=== PATIENT | female | born 1945 | race Caucasian/White ===

== ENCOUNTER 2016-05-25 05:49 | Day surgery (SDC) | payer MEDICARE ==
[2016-05-23 21:12] LABS: BASOPHILS 0.5 %; BASOPHILS ABSOLUTE 0.03 10/3/uL (0.0-0.16); EOSINOPHILS 0.5 %; EOSINOPHILS ABSOLUTE 0.03 10/3/uL (0.0-0.53); HEMATOCRIT 40.5 % (36.0-48.0); HEMOGLOBIN 13.3 g/dL (12.0-16.0); IMMATURE GRANULOCYTES 0.2 %; IMMATURE GRANULOCYTES ABSOLUTE 0.01 10/3/uL (0.0-0.11); LYMPHOCYTES 34.9 %; LYMPHOCYTES ABSOLUTE 2.07 10/3/uL (0.67-4.30); MEAN CORPUS HGB CONC 32.8 g/dL (32.0-36.0); MEAN CORPUSCULAR HEMOGLOB 29.6 pg (26.0-34.0); MEAN CORPUSCULAR VOLUME 90.2 fL (80-100); MEAN PLATELET VOLUME 10.7 fL (9.2-13.0); MONOCYTES 10.5 %; MONOCYTES ABSOLUTE 0.62 10/3/uL (0.21-1.20); NEUTROPHILS 53.4 %; NEUTROPHILS ABSOLUTE 3.17 10/3/uL (2.02-8.40); PLATELET COUNT 196 10/3/uL (150-400); RED CELL COUNT 4.49 10/6/uL (4.0-5.6); WHITE BLOOD CELLS 5.9 10/3/uL (4.5-10.5)
[2016-05-23 21:14] LABS: MANUAL DIFF NO %
[2016-05-23 21:22] LABS: BUN (BLOOD UREA NITROGEN) 13 MG/DL (6-23); CALCIUM, SERUM 9.1 MG/DL (8.5-10.4); CHLORIDE, SERUM 107 MMOL/L (96-112); CO2 (CARBON DIOXIDE) 28 MMOL/L (24-34); GFR AFRICAN AMERICAN 101 ML/MIN (>=60); GFR NON AFRICAN AMERICAN 87 ML/MIN (>=60); GLUCOSE, SERUM 91 MG/DL (60-99); POTASSIUM, SERUM 3.7 MMOL/L (3.5-5.3); SODIUM, SERUM 144 MMOL/L (135-148)
--- NOTE | ~2016-05-25 | OP ---
Record Of Operation [facility] [address] [place]. [address] NAME: CHENCHO QUINN : 43 STATUS : REG [facility] PAT#: [id number] AGE: 70 ADM/REG DATE : 05/25/16 MR#: [id number] REPORT SERV DATE: 05/25/16 DICTATED BY: ADRIEL ARIZA DATE: 05/25/16 REPORT STATUS : Draft TRANSCRIBED BY: ALISSA DATE: 05/25/16 DATE OF PROCEDURE: 05/25/2016 SERVICE: Otolaryngology. PREOPERATIVE DIAGNOSIS: Right tonsil mass. POSTOPERATIVE DIAGNOSIS: Right tonsil mass. PROCEDURES: 1. Otolaryngologic examination under anesthesia. 2. Right palatine tonsil biopsy. ANESTHESIA: General endotracheal anesthesia. ESTIMATED BLOOD LOSS: 3 mL. SPECIMEN: Right tonsil mass. FINDINGS: The patient had a very firm right tonsil compared to the left. I excised the firm portion of the tonsil, underneath was a large concretion intratonsillar tonsillith. I removed that as well. 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 The biopsy was sent for frozen diagnosis, and at the time of this dictation, the diagnosis had not been rendered from that. COMPLICATIONS: None. STATEMENT OF MEDICAL NECESSITY: This is a 70-year-old female with history of right-sided throat pain. A CT scan that had been obtained before the consultation with me showed an enhancing right-sided tonsil mass concerning for possible malignancy. In the clinic, given the location, I was unable to adequately biopsy or evaluate the lesion, so I recommended the above procedure. STATEMENT OF OPERATION: The patient was brought to the operating room in supine position, transferred to operating table. After all pressure points were padded and general endotracheal anesthesia was established, the patient was draped out for the procedure. Triple antibiotic ointment was applied to the lips and a McIvor mouth gag was inserted and locked for retraction of the tongue and oral cavity. Deep palpation of the oropharynx and base of tongue revealed soft left palatine tonsil and soft lingual tonsils. The right tonsil was very firm. There were no mucosal ulcerations. Given this finding, using a 15 blade, I carved out a piece of the very firm part of the tonsil. This was removed and placed in a cup to be sent for frozen analysis. I did take another deeper piece as well and also sent for frozen analysis. Under the deeper piece, was a large angulo-white concretion. This was removed from an intratonsillar crypt. Bleeding was minimal. I cauterized the area of excision with a suction Bovie. We passed the orogastric tube and suctioned out the stomach contents. The McIvor was removed. The patient was turned over to Anesthesia, where Record Of Operation [address] [address] NAME: CHENCHO QUINN : 43 STATUS : REG [facility] PAT#: [id number] AGE: 70 ADM/REG DATE : 05/25/16 MR#: [id number] REPORT SERV DATE: 05/25/16 DICTATED BY: ADRIEL ARIZA DATE: 05/25/16 REPORT STATUS : Draft TRANSCRIBED BY: MODL DATE: 05/25/16 she awoke, was extubated, and transferred to the PACU in stable condition. PS/MODL Adriel Ariza MD / [id number] CC: MD Millie Forman M.D.
[~2016-05-25 05:49] MED LIST: ACIDOPHILU1 PO; ALIGN4 MG PO; BIOTIN5 MG PO; CALTRA600D PO; CRESTOR PO; FISH-EPA1000 MG PO; PREM625 PO; SUCR PO; VITAMIN B PO; VYTORIN 10/40 T1 TAB PO; [UNRECOGNIZED DRUG - OTHER] PO
== END 2016-05-25 11:44 | disposition home or self-care (01) ==
LOC: SDC 05:49
PROVIDERS: Otolaryngology
PROC: 0CBP0ZX Excision of Tonsils, Open Approach, Diagnostic (ICD-10-PCS; principal; 2016-05-25 07:15)
DX: J35.8 Other chronic diseases of tonsils and adenoids (principal); K21.9 Gastro-esophageal reflux disease without esophagitis; E78.00 Pure hypercholesterolemia, unspecified; M19.90 Unspecified osteoarthritis, unspecified site; M79.7 Fibromyalgia; M81.0 Age-related osteoporosis without current pathological fracture; Z90.710 Acquired absence of both cervix and uterus; Z88.5 Allergy status to narcotic agent; Z88.8 Allergy status to other drugs, medicaments and biological substances; Z98.890 Other specified postprocedural states
CPT/HCPCS: 36415; 80048; 85025; 88300; 88305; 88331; 93005; A9270-GY; J0330; J2250; J2405; J2550; J2710; J3010